=== PATIENT | female | born 2000 | race Caucasian/White ===

== ENCOUNTER 2021-08-22 20:11 | Outpatient (CLI) | payer OTHER | END 2021-08-22 22:45 | disposition home or self-care (01) | LOC: GENOP 20:11 | DX: O99.891 Other specified diseases and conditions complicating pregnancy (principal); M25.552 Pain in left hip; O99.343 Other mental disorders complicating pregnancy, third trimester; F31.9 Bipolar disorder, unspecified; F41.9 Anxiety disorder, unspecified; Z3A.36 36 weeks gestation of pregnancy | CPT/HCPCS: 59025; 81001 ==

== ENCOUNTER 2021-09-07 16:44 | Inpatient (IN) | payer OTHER ==
[~2021-09-07] VITALS: Ht 165.1 cm; Wt 59.0 kg
[2021-09-07 18:02] LABS: HEMOGLOBIN 12.9 gm/dl (12.3-15.3); RED BLOOD COUNT 4.16 M/UL (4.00-5.10); WHITE BLOOD COUNT 8.2 K/UL (4.5-11.0)
[2021-09-07] MEDS ORDERED: FERROUS SULFAT325 M2 PO (18:30)
[2021-09-08] MEDS ORDERED: IBUPROFEN800 MG PO (11:45)
[2021-09-08] MEDS ORDERED: COLACE100 MG PO (11:45)
[2021-09-08] MEDS ORDERED: PERCOCET 5/325 T1 EA PO (11:45)
[2021-09-08] MEDS ORDERED: HEMOCYTE324 MG PO (11:45)
[2021-09-09 03:13] LABS: HEMOGLOBIN 9.1 gm/dl (12.3-15.3); RED BLOOD COUNT 2.93 M/UL (4.00-5.10); WHITE BLOOD COUNT 10.6 K/UL (4.5-11.0)
[2021-09-09] MEDS ORDERED: CEPHALEXIN500 M1 PO (13:57)
== END 2021-09-10 19:00 | disposition home or self-care (01) | DRG 787 ==
LOC: GENOP 16:44 → OB 17:06
PROVIDERS: Obstetrics & Gynecology; ADMIT Obstetrics & Gynecology
PROC: 10907ZC Drainage of Amniotic Fluid, Therapeutic from Products of Conception, Via Natural or Artificial Opening (ICD-10-PCS; 2021-09-08)
PROC: 3E033VJ Introduction of Other Hormone into Peripheral Vein, Percutaneous Approach (ICD-10-PCS; 2021-09-08)
PROC: 10H07YZ Insertion of Other Device into Products of Conception, Via Natural or Artificial Opening (ICD-10-PCS; 2021-09-08)
PROC: 4A1H7CZ Monitoring of Products of Conception, Cardiac Rate, Via Natural or Artificial Opening (ICD-10-PCS; 2021-09-08)
PROC: 10H073Z Insertion of Monitoring Electrode into Products of Conception, Via Natural or Artificial Opening (ICD-10-PCS; 2021-09-08)
PROC: 3E0234Z Introduction of Serum, Toxoid and Vaccine into Muscle, Percutaneous Approach (ICD-10-PCS; 2021-09-08)
PROC: 10D00Z1 Extraction of Products of Conception, Low, Open Approach (ICD-10-PCS; principal; 2021-09-08 11:49)
DX: O76 Abnormality in fetal heart rate and rhythm complicating labor and delivery (principal); O86.4 Pyrexia of unknown origin following delivery; O23.43 Unspecified infection of urinary tract in pregnancy, third trimester; N39.0 Urinary tract infection, site not specified; O99.344 Other mental disorders complicating childbirth; F31.9 Bipolar disorder, unspecified; O36.8330 Maternal care for abnormalities of the fetal heart rate or rhythm, third trimester, not applicable or unspecified; Z37.0 Single live birth; Z3A.39 39 weeks gestation of pregnancy; Z28.310 Unvaccinated for COVID-19; Z82.49 Family history of ischemic heart disease and other diseases of the circulatory system; Z83.3 Family history of diabetes mellitus; Z81.8 Family history of other mental and behavioral disorders; Z23 Encounter for immunization
CPT/HCPCS: 36415; 81001; 82800; 85025; 85461; 86850; 86900; 86901; 87086; 90715; C9113; J0690; J0696; J1170; J1200; J1580; J1885; J2210; J2405; J2590; J2704; J2790; J2795